=== PATIENT | male | born 1975 | race Caucasian/White ===

== ENCOUNTER 2017-08-24 19:06 | Emergency (ER) | payer MEDICAID ==
[~2017-08-24] VITALS: Ht 167.6 cm; Wt 63.5 kg
[2017-08-24 20:12] VITALS: BP 105/63
== END 2017-08-25 00:54 | disposition left against medical advice (07) ==
LOC: ER 19:06
DX: S61.412A Laceration without foreign body of left hand, initial encounter (principal); Z53.21 Procedure and treatment not carried out due to patient leaving prior to being seen by health care provider; W45.8XXA Other foreign body or object entering through skin, initial encounter; Y93.89 Activity, other specified; Y92.89 Other specified places as the place of occurrence of the external cause; Y99.8 Other external cause status